=== PATIENT | female | born 1985 ===

== ENCOUNTER 2017-05-04 10:05 | Emergency (ER) | payer OTHER ==
[2017-05-04 10:15] VITALS: RESP 16; TEMP 98.3
[2017-05-04 11:17] LABS: RBC URINE 2 /hpf (0-3); URINE BACTERIA RARE (<OCC); URINE BILIRUBIN NEGATIVE (NEGATIVE); URINE BLOOD NEGATIVE (NEGATIVE); URINE COLOR Yellow (YELLOW); URINE GLUCOSE (UA) NORMAL (Normal); URINE KETONE NEGATIVE (NEGATIVE); URINE LEUKOCYTE ESTERASE NEG Leu/uL (Negative); URINE PROTEIN NEGATIVE (NEGATIVE); URINE UROBILINOGEN NORMAL mg/dL (0.2-1.0); WBC URINE 1 /hpf (0-5)
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
[2017-05-04 13:28] VITALS: BP 129/85; PULSE 78; O2SAT 98
== END 2017-05-04 13:28 | disposition home or self-care (01) ==
LOC: C.ER 10:05
DX: O9A.211 Injury, poisoning and certain other consequences of external causes complicating pregnancy, first trimester (principal); R10.2 Pelvic and perineal pain; Z3A.09 9 weeks gestation of pregnancy